=== PATIENT | female | born 1990 | race Caucasian/White ===

== ENCOUNTER 2020-09-16 19:20 | Inpatient (IN) ==
[~2020-09-16 19:20] MED LIST: ACETYLCYSTEINE IV ONE; D5W IV ONE
[2020-09-16 20:36] LABS: ABS Basophils 0.1 10^3/ul (0-0.2); ABS Lymphocytes 1.4 10^3/ul (1.0-4.8); ABS Monocytes 0.2 10^3/ul (0-0.8); ABS Neutrophils 4.5 10^3/ul (1.5-7.7); Eosinophil % 0.3 %; Hematocrit 49 % (35-47); Hemoglobin 16.9 g/dL (12.0-16.0); Mean Corpuscular HGB Conc 35 g/dL (31-36); Mean Corpuscular Hemoglobin 32 pg (27-31); Mean Corpuscular Volume 92 fL (80-97); Mean Platelet Volume 7.4 fL (7.4-10.4); Platelet Count 332 10^3/uL (150-450); Red Blood Count 5.27 10^6 /uL (3.70-4.87); Red Cell Distribution Width 13 % (10-15); White Blood Count 6.3 10^3/uL (3.5-10.8)
[2020-09-16 21:02] LABS: HCG Pregnancy < 0.60 mIU/mL
[2020-09-16 21:04] LABS: ALT 13 U/L (7-52); AST 15 U/L (13-39); Albumin 4.6 g/dL (3.2-5.2); Albumin/Globulin Ratio 1.5 (1-3); Alkaline Phosphatase 58 U/L (34-104); Blood Urea Nitrogen 6 mg/dL (6-24); CO2 Carbon Dioxide 23 mmol/L (22-32); Calcium 9.3 mg/dL (8.6-10.3); EGFR African American 123.8 (>60); EGFR Non-African American 102.3 (>60); Glucose 142 mg/dL (70-100); Potassium 4.3 mmol/L (3.5-5.0); Sodium 143 mmol/L (135-145); Total Protein 7.6 g/dL (6.4-8.9)
[2020-09-16 21:06] LABS: Alcohol, S 214 mg/dL (<10); Salicylate < 2.50 mg/dL (<30)
[2020-09-16 21:11] LABS: Anion Gap 8 mmol/L (2-11); Chloride 112 mmol/L (101-111)
[2020-09-16 21:16] LABS: TSH Ultra Thyroid Stim Horm 0.45 mcIU/mL (0.34-5.60)
[2020-09-16 21:23] LABS: Acetaminophen 299 mcg/mL
[2020-09-16] MEDS ORDERED: D5W IV ONE ×2 (22:00→23:00)
[2020-09-16] MEDS ORDERED: ACETYLCYSTEINE IV ONE ×2 (22:00→23:00)
[2020-09-17] MEDS ORDERED: Ondansetron 4 mg VIAL 2 MG/ML 2 ml VIAL IV PRN (01:28)
[2020-09-17] MEDS ORDERED: D5W IV ONE (04:00)
[2020-09-17] MEDS ORDERED: ACETYLCYSTEINE IV ONE (04:00)
[2020-09-17 07:52] LABS: ABS Lymphocytes 1.9 10^3/ul (1.0-4.8); ABS Monocytes 0.8 10^3/ul (0-0.8); ABS Neutrophils 7.6 10^3/ul (1.5-7.7); Albumin/Globulin Ratio 1.7 (1-3); Calcium 8.5 mg/dL (8.6-10.3); EGFR African American 130.4 (>60); EGFR Non-African American 107.8 (>60); Eosinophil % 0.1 %; Globulin 2.4 g/dL (2-4); Hematocrit 42 % (35-47); Hemoglobin 14.8 g/dL (12.0-16.0); Lymphocyte % 18.4 %; Mean Corpuscular HGB Conc 35 g/dL (31-36); Mean Corpuscular Hemoglobin 32 pg (27-31); Mean Corpuscular Volume 91 fL (80-97); Mean Platelet Volume 7.7 fL (7.4-10.4); Platelet Count 274 10^3/uL (150-450); Potassium 3.3 mmol/L (3.5-5.0); Red Blood Count 4.59 10^6 /uL (3.70-4.87); Red Cell Distribution Width 12 % (10-15); Total Bilirubin 0.6 mg/dL (0.2-1.0); Total Protein 6.4 g/dL (6.4-8.9); White Blood Count 10.4 10^3/uL (3.5-10.8)
[2020-09-17] MEDS: Multivitamins/Minerals TAB PO SCH (08:50)
[2020-09-17] MEDS ORDERED: Potassium Chlor 20 meq TAB.ER PO ONE (10:05)
[2020-09-17 10:28] LABS: Magnesium 1.8 mg/dL (1.9-2.7); Phosphorus 4.1 mg/dL (2.5-5.0)
[2020-09-17 10:50] LABS: Urine Appearance Cloudy; Urine Bilirubin Negative (Negative); Urine Blood Negative (Negative); Urine Color Yellow; Urine Glucose Negative (Negative); Urine Ketones Trace (Negative); Urine Nitrite Negative (Negative); Urine Protein Negative (Negative); Urine Urobilinogen Negative (Negative)
[2020-09-17 11:07] LABS: Urine Benzodiazepine Screen None Detected (None Detect); Urine Cannabinoids Screen None Detected (None Detect); Urine Opiates Screen None Detected (None Detect)
[2020-09-17 17:59] LABS: Anion Gap 8 mmol/L (2-11); Blood Urea Nitrogen 6 mg/dL (6-24); CO2 Carbon Dioxide 22 mmol/L (22-32); Calcium 9.1 mg/dL (8.6-10.3); Chloride 105 mmol/L (101-111); EGFR African American 161.5 (>60); EGFR Non-African American 133.5 (>60); Glucose 119 mg/dL (70-100); Magnesium 2.1 mg/dL (1.9-2.7); Phosphorus 2.6 mg/dL (2.5-5.0); Potassium 3.8 mmol/L (3.5-5.0); Sodium 135 mmol/L (135-145)
[2020-09-17 18:27] LABS: Acetaminophen < 15 mcg/mL
[2020-09-17 19:13] LABS: ALT 10 U/L (7-52); AST 13 U/L (13-39)
[2020-09-18] MEDS: Multivitamins/Minerals TAB PO SCH (09:34)
[2020-09-19 06:26] LABS: Albumin 4.2 g/dL (3.2-5.2); Albumin/Globulin Ratio 1.8 (1-3); Calcium 9.4 mg/dL (8.6-10.3); EGFR African American 148.7 (>60); EGFR Non-African American 122.9 (>60); Globulin 2.4 g/dL (2-4); Magnesium 2.1 mg/dL (1.9-2.7); Phosphorus 3.3 mg/dL (2.5-5.0); Potassium 4.2 mmol/L (3.5-5.0); Total Bilirubin 0.8 mg/dL (0.2-1.0); Total Protein 6.6 g/dL (6.4-8.9)
[2020-09-19] MEDS ORDERED: Nicotine GUM 4MG FRUIT FLAVOR PO PRN (08:32)
[2020-09-19] MEDS: Multivitamins/Minerals TAB PO SCH (09:13)
[2020-09-19] MEDS: Nicotine PATCH 21 MG/24 HR PATCH TRANSDERM SCH (14:43)
[2020-09-20] MEDS: Multivitamins/Minerals TAB PO SCH (09:52)
[2020-09-20] MEDS: Nicotine PATCH 21 MG/24 HR PATCH TRANSDERM SCH (09:54)
[2020-09-20] MEDS ORDERED: Saline NASAL SPRAY 0.65% BTL BOTH NARES PRN (10:11)
[2020-09-21] MEDS: Multivitamins/Minerals TAB PO SCH (08:31)
[2020-09-21] MEDS: Nicotine PATCH 21 MG/24 HR PATCH TRANSDERM SCH (08:32)
[2020-09-22] MEDS: Nicotine PATCH 21 MG/24 HR PATCH TRANSDERM SCH (08:00)
[2020-09-22 08:04] VITALS: BP 122/74
[2020-09-22] MEDS ORDERED: Vitamin THERAPEUTIC TAB PO SCH (09:00)
== END 2020-09-22 09:30 | DRG 812 ==
LOC: ED 19:20 → ICU 22:41 → MEDTELE 09-18 13:13
PROVIDERS: ADMIT Student in an Organized Health Care Education/Training Program; ATTEND Internal Medicine